=== PATIENT | female | born 1985 | race African-American/Black ===

== ENCOUNTER 2017-07-15 16:22 | Emergency (ER) | payer MEDICARE, MEDICAID ==
[~2017-07-15] VITALS: Ht 162.6 cm; Wt 54.4 kg
[2017-07-15] MEDS ORDERED: HYDREA500 MG PO (16:39)
[2017-07-15] MEDS ORDERED: FOLIC ACID1 MG ORAL (16:39)
[2017-07-15] MEDS ORDERED: IBUPROFEN600 MG ORAL (17:01)
[2017-07-15] MEDS ORDERED: ROBAXIN500 MG PO (17:01)
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
[2017-07-15 17:07] VITALS: BP 102/64
[2017-07-15 17:48] VITALS: BP 108/65
== END 2017-07-15 17:40 | disposition home or self-care (01) ==
LOC: EMR 17:10
DX: M54.9 Dorsalgia, unspecified (principal); R51 Headache; V49.40XA Driver injured in collision with unspecified motor vehicles in traffic accident, initial encounter; Y92.410 Unspecified street and highway as the place of occurrence of the external cause; Z88.1 Allergy status to other antibiotic agents
CPT/HCPCS: 99284